=== PATIENT | female | born 1965 | race Caucasian/White ===

== ENCOUNTER 2017-02-20 04:52 | Inpatient (IN) | payer OTHER ==
[~2017-02-20] VITALS: Ht 165.1 cm; Wt 97.5 kg
--- NOTE | ~2017-02-20 | EKG ---
PATIENT: DEBBY LAUREANO UNIT #: [id number] Ventricular Rate: 100 BPM Atrial Rate: 100 BPM P-R Interval: 120 ms QRS Duration: 90 ms Q-T Interval: 352 ms QTC Calculation(Bezet): 454 ms P [place]: 83 degrees Calculated R [place]: 21 degrees Calculated T [place]: 62 degrees Diagnosis Line: Normal sinus rhythm Diagnosis Line: Poor R wave progression questionable lead position Diagnosis Line: or body habitus Diagnosis Line: Abnormal ECG Diagnosis Line: When compared with ECG of 21-FEB-2017 06:44, Diagnosis Line: (unconfirmed) Diagnosis Line: Questionable change in QRS axis Diagnosis Line: Confirmed by TYRONE CARTAGENA MD ([id number]) on 02/23/2017 Diagnosis Line: 3:01:37 PM INTERPRETING MD: MITZI LOPEZ
--- NOTE | ~2017-02-20 | EKG ---
PATIENT: DEBBY LAUREANO UNIT #: [id number] Ventricular Rate: 123 BPM Atrial Rate: 123 BPM P-R Interval: 132 ms QRS Duration: 70 ms Q-T Interval: 342 ms QTC Calculation(Bezet): 489 ms P [place]: 70 degrees Calculated R [place]: 86 degrees Calculated T [place]: 67 degrees Diagnosis Line: Sinus tachycardia Diagnosis Line: Low voltage QRS Diagnosis Line: Nonspecific ST abnormality Diagnosis Line: Abnormal ECG Diagnosis Line: When compared with ECG of 20-FEB-2017 07:17, Diagnosis Line: Premature ventricular complexes are no longer Diagnosis Line: Present Diagnosis Line: Vent. rate has decreased BY 68 BPM Diagnosis Line: Questionable change in QRS duration Diagnosis Line: Confirmed by TYRONE CARTAGENA MD ([id number]) on 02/23/2017 Diagnosis Line: 2:46:27 PM INTERPRETING MD: MITZI LOPEZ
--- NOTE | ~2017-02-20 | CR72 ---
[facility] A Service of [facility] RADIOLOGY TEXT RESULTS PATIENT: DEBBY LAUREANO LOCATION: [place] [address] : [birth year] UNIT #: [id number] AGE: [address]: IGOR SEX: F ORDER DR: [id number] [facility] [address] [place], [place] [address] [id number] I MR#: [id number] #: [id number] NAME: DEBBY LAUREANO : 1965 SEX: F STUDY DATE/TIME: UNIT: [facility] ROOM: [facility] STUDY DESCRIPTION: CR Chest Single View Portable Attending Physician: Igor Ordering Physician: Physician Non-Staff Primary Care Physician: Irene Galvez M.D. MEDICAL IMAGING REPORT This report is preliminary unless electronic signature is present REVISED REPORT SEE ADDENDUM EXAM Portable chest 02/22 at 0001 hours INDICATIONS Shortness of air status post cardiac arrest. Possible organ donor. FINDINGS The ET tube is in the mid trachea. There is a right IJ line, the tip projects over the mid-chest and is probably in the SVC. Patient is rotated on both of the views that have been submitted. There is mild cardiac enlargement and vascular congestion. Allowing for rotation, the lungs appear clear. No pneumothorax. STAT * RESULT Dictated by... Zachary Moreau Jr., M.D. THIS IS AN ELECTRONICALLY VERIFIED REPORT Zachary Moreau Jr., M.D. at 02/23/2017 4:54 AM COLLIN/marybeth TD: 02/22/2017 11:54 JOB #: [id number] [facility] A Service of [facility] & [facility] RADIOLOGY TEXT RESULTS PATIENT: DEBBY LAUREANO LOCATION: [place] [address] : [birth year] UNIT #: [id number] AGE: [address]: IGOR SEX: F ORDER DR: EXAM Portable chest ADDENDUM Measurements have been made at the request of Igor. The right lung height is 25 cm. Left lung height is 22 cm. The distance from the right costophrenic angle to the left costophrenic angle of 34 cm. On the chest CT performed the same day, diameter of the aortic knob on the coronal reformats is 2.8 cm. STAT * RESULT Dictated by... Zachary Moreau Jr., M.D. THIS IS AN ELECTRONICALLY VERIFIED REPORT Zachary Moreau Jr., M.D. at 02/24/2017 3:11 AM COLLIN/eric TD: 02/23/2017 05:10 JOB #: [id number] CC: Yousuf/randa Please Delete MEDICAL IMAGING REPORT Page 1 of 1 COPY
--- NOTE | ~2017-02-20 | CT71 ---
[facility] A Service [facility] & [facility] RADIOLOGY TEXT RESULTS PATIENT: DEBBY LAUREANO LOCATION: [place] [id number] : 64 UNIT #: [id number] AGE: [address]: Melva Khalil MD SEX: F ORDER DR: [id number] [facility] [address] [place], [place] [address] [id number] I MR#: [id number] Acc #: [id number] NAME: DEBBY LAUREANO. : 1965 SEX: F STUDY DATE/TIME: 02/20/2017 9:43 UNIT: [facility] ROOM: [facility] STUDY DESCRIPTION: CT Head Wo Contrast Attending Physician: Melva Khalil M.D. Ordering Physician: Zachary Turk M.D. Primary Care Physician: Irene Galvez M.D. MEDICAL IMAGING REPORT This report is preliminary unless electronic signature is present EXAM Noncontrast CT head. DATE 02/20/2017 at 0943 HISTORY Witnessed cardiac arrest this morning, now unresponsive and on the ventilator. Hypertension. Previous history of stroke. Fibromyalgia. COMPARISON Noncontrast CT head, 08/16/2014. TECHNIQUE This CT exam was performed with one or more of the following radiation dose reduction techniques: automatic exposure control, adjustment of mA and/or kV according to patient size, and iterative reconstruction. FINDINGS The major critical findings have already been discussed with Dr. Turk in the emergency room prior to the time of this dictation, 02/20/2017 at 10:08 a.m. High-density material is seen intracranially, potentially representing diffuse subarachnoid blood. Of note, the patient has no documented history of IV contrast administration either at this facility or documented history of recent IV contrast administration at outside facility. There is diffuse cerebral edema with effacement of the sulci, narrowing of the lateral ventricles, and partial effacement of the third and fourth ventricles as well and effacement of the perimesencephalic cisterns. Additionally, it is worrisome for downward herniation with effacement of [facility] A Service of [facility] & [facility] RADIOLOGY TEXT RESULTS PATIENT: DEBBY LAUREANO LOCATION: [address] : [birth year] UNIT #: [id number] AGE: [address]: Melva Khalil MD SEX: F ORDER DR: the craniocervical junction by the cerebellar tonsils. Paranasal sinus disease is present greatest in the left maxillary and bilateral ethmoid sinuses. Mastoid air cells are clear. No acute calvarial abnormality. IMPRESSION 1. Markedly abnormal examination. Critical findings have already been discussed with the ER physician. 2. There is diffuse cerebral edema with effacement of the perimesencephalic cisterns, partial effacement of the third and fourth ventricles and partial effacement of the lateral ventricles. No midline shift. 3. Features suggestive of diffuse subarachnoid hemorrhage. 4. Findings worrisome for downward herniation with effacement of the craniocervical junction by the cerebellar tonsils. 5. Chronic microvascular disease change in the left parietal lobe thought to be stable since 2014. Dictated by... Cheryl Paul M.D. THIS IS AN ELECTRONICALLY VERIFIED REPORT Cheryl Paul M.D. at 02/21/2017 2:02 PM DARREL/natividad TD: 02/20/2017 12:51 JOB #: [id number] MEDICAL IMAGING REPORT Page 1 of 1 COPY
--- NOTE | ~2017-02-20 | NM10 ---
[facility] A Service of [facility] & [facility] RADIOLOGY TEXT RESULTS PATIENT: DEBBY LAUREANO LOCATION: [place] [address] : [birth year] UNIT #: [id number] AGE: [address]: Mleva Khalil MD SEX: F ORDER DR: [id number] [facility] [address] [place], [place] [address] [id number] I MR#: [id number] Acc #: [id number] NAME: DEBBY LAUREANO : 1965 SEX: F STUDY DATE/TIME: 02/21/2017 15:56 UNIT: [facility] ROOM: [facility] STUDY DESCRIPTION: NM Brain Image W Vasc Flow Attending Physician: Melva Khalil M.D. Ordering Physician: Melva Khalil M.D. Primary Care Physician: Irene Galvez M.D. MEDICAL IMAGING REPORT This report is preliminary unless electronic signature is present EXAM Nuclear medicine imaging with vascular flow. Brain study. DATE OF EXAM 02/21/2017, 15:56. HISTORY [facility] patient. Patient admitted to the hospital 02/20/2017 due to unresponsiveness with cardiac arrest. Shortness of breath at 4 a.m. on 02/20/2017, and EMS was called. EMS found her unresponsive and not breathing, with pulseless electrical activity. While in the ER, pulse was regained, and she was intubated. CT shows severe cerebral edema with brain stem herniation and subarachnoid hemorrhage. COMPARISON CT head without contrast, 02/20/2017. FINDINGS Following the intravenous administration of 23.4 mCi technetium-99m MDP, multiplanar imaging was obtained of the brain. No discernible intracranial activity or intracranial flow was identified. Extracranial activity is demonstrated, including the hot nose sign. IMPRESSION 1. No demonstrable intracranial activity or intracranial flow, compatible with clinical suspicion of brain . STAT * RESULT [facility] A Service of [facility] & [facility] RADIOLOGY TEXT RESULTS PATIENT: DEBBY LAUREANO LOCATION: [address] : [birth year] UNIT #: [id number] AGE: [address]: Melva Khalil MD SEX: F ORDER DR: Dictated by... Cheryl Paul M.D. THIS IS AN ELECTRONICALLY VERIFIED REPORT Cheryl Paul M.D. at 02/21/2017 7:11 PM Mer TD: 02/21/2017 18:56 JOB #: [id number] MEDICAL IMAGING REPORT Page 1 of 1 COPY
--- NOTE | ~2017-02-20 | CO ---
Unit #: [id number] #: [id number] Patient: DEBBY LAUREANO [id number] [facility] [address] [place], [place] [address] [id number] I MR#: [id number] NAME: DEBBY LAUREANO ROOM: [facility] Age: 51 Sex: F Admission Date: 02/20/2017 : 1965 Attending Physician: Igor Primary Care Physician: Irene Galvez M.D. Consultation Date: 02/20/2017 CONSULTATION REPORT REASON FOR CONSULTATION Arrhythmia, status post cardiac arrest. HISTORY OF PRESENT ILLNESS This is a 51-year-old white female with a past medical history of coronary artery disease status post cardiac catheterization on 07/21/2014 at [facility] per Dr. Puga. The patient had 2 areas of 99% stenosis in the first diagonal of the LAD. She underwent a failed angioplasty due to intimal dissection. She was subsequently admitted to [facility], and had a stent placed. Details of stent placement are unavailable at this time. Additional past medical history includes hypertension, diabetes, COPD, and chronic pain syndrome. The patient was seen by our group in the hospital in 08/2014 with hypotension and junctional rhythm with altered mental status. This was thought to be medication induced and her medications were adjusted. She was subsequently discharged. She presented to the hospital early this morning after a cardiac arrest. There is no family at the bedside and the patient is currently on a ventilator and cannot provide any information. Information has been obtained from staff and documentation. According to reports, EMS was dispatched this morning to the patient's home due to shortness of breath. When they arrived on the scene, they were lead into the house. The patient was found to be agonal. She became bradycardic and lost her pulse. CPR was initiated. She was given a round of epi. There were reports of one shock, though code sheets are unavailable for review. In the emergency department, CPR was continued. She was intubated. She was started on Levophed drip, normal saline, and sodium bicarbonate. Her initial potassium was high at 5.4, and she was given insulin. Initial ABG was abnormal with an acidotic pH of 7.12 and CO2 of 70.3. Further labs revealed initially negative cardiac enzymes. Coags were normal. Urine toxicology was negative. Chest x-ray revealed mild vascular congestion, but no effusions or pneumothorax. The patient was taken for a CT of the head due to unresponsiveness. CT of the head was markedly abnormal with diffuse cerebral edema. There were features suggestive of a diffuse subarachnoid hemorrhage. There were findings worrisome for downward herniation. Poststress EKG revealed atrial flutter with a ventricular rate of 91 beats per minute as well as a right bundle-branch block, which is age undetermined. There was deep ST depression noted in the anterolateral leads of V3 through V6. Cardiology was consulted for arrhythmias and post arrest. PAST MEDICAL HISTORY 1. Previous admission to [facility] in 08/2014 for hypertension, junctional rhythm, and altered mental status secondary to overmedication. Unit #: [id number] #: [id number] Patient: DEBBY LAUREANO 2. Coronary artery disease status post cardiac catheterization on 07/21/2014, which revealed left main normal, proximal LAD 30%, LAD involving the first diagonal 60% to 70%, distal to 1st septal clinical services manager 60% to 70%, first diagonal small with 2 areas of 99%, ostial left circumflex 40%, first obtuse marginal, 60%, ostial right coronary artery 30%, junction of proximal 1/3 and distal 2/3 of 50%, mid right coronary artery with 2 areas of 80%, ejection fraction 60%. Failed angioplasty of the first diagonal with intimal dissection. 3. Status post reported PCI and stent at [facility]. Details unavailable. 4. Hypertension. 5. Diabetes mellitus, type 2. 6. Obesity. 7. COPD. 8. Chronic pain syndrome. 9. Peptic ulcer disease. 10. Gastritis. 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 12. Fibromyalgia. 13. Peripheral neuropathy. 14. Partial blindness in the right eye. 15. Renal calculi. 16. Sciatica. 17. Degenerative disk disease. 18. Cataracts. 19. History of tobacco abuse. PAST SURGICAL HISTORY 1. Cardiac catheterization, as noted above. 2. Cataract extraction. 3. Sinus reconstruction. 4. Hysterectomy. 5. Appendectomy. 6. Bronchoscopy. 7. EGD and colonoscopy, last document in 2000. 8. 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 MEDICATIONS Home medications: List of home medications are unavailable at this time. According to office notes in 01/2016, medications included; 1. Albuterol. 2. Amlodipine. 3. Aspirin. 4. Atorvastatin. 5. Budesonide. 6. Carvedilol. 7. Plavix. 8. Gabapentin. 9. Januvia. 10. Levemir. 11. Metformin. 12. Nitrostat. ALLERGIES 1. Penicillin. 2. Codeine. 3. Hydrocodone. 4. Keflex. 5. Ceclor. Unit #: [id number] #: [id number] Patient: DEBBY LAUREANO 6. Erythromycin. 7. Biaxin. SOCIAL HISTORY The patient lives in a private residence. She has a history of tobacco abuse with 1 pack of cigarettes per day. There is no documentation of alcohol or illicit drug use. FAMILY HISTORY Unknown. The patient is adopted. REVIEW OF SYSTEMS Difficult to obtain. PHYSICAL EXAMINATION VITAL SIGNS: Temperature 97.9, pulse 108, and blood pressure 122/87. CONSTITUTIONAL: This is a 51-year-old white female who is nonresponsive on the vent. SKIN: Warm and dry. NECK: Supple. No jugular vein distention. No hepatojugular reflux. Normal carotid upstrokes. No carotid bruits auscultated. HEART: S1 and S2. Regular rate and rhythm. No murmurs, rubs, or gallops. LUNGS: Bilateral breath sounds have good air entry. No wheezes, rhonchi, or rales. Respirations are even and nonlabored. ABDOMEN: Obese, soft, nontender, and nondistended. Positive bowel sounds auscultated x4 quadrants. No ascites noted. EXTREMITIES: Right lower extremity has no pretibial pitting edema. Left above the knee amputation. DIAGNOSTIC STUDIES LABORATORY RESULTS: White blood cell count 20.8, hemoglobin 14, hematocrit 44.7, and platelets 345. Sodium 135, potassium 5.4, chloride 98, CO2 of 17, BUN 6, creatinine 0.9, and glucose 478. AST 46, ALT 24, and alkaline phosphatase 98. Troponin 0.05 and 0.05. Urine toxicology positive for 3+ protein, positive blood, positive yeast. Blood cultures pending. IMAGING STUDIES: 1. Chest x-ray reveals mild vascular congestion. 2. CT of the head without contrast reveals diffuse cerebral edema with effacement of the perimesencephalic cisterns, partial effacement of the 3rd and 4th ventricles, and partial effacement of the lateral ventricles. No midline shift. Features suggestive of diffuse subarachnoid hemorrhage. Findings worrisome for downward herniation with effacement of the craniocervical junction by the cerebellar tonsils. Chronic microvascular disease in the left parietal lobe, thought to be stable since 2014. IMPRESSION 1. Status post resuscitated cardiopulmonary arrest. 2. Subarachnoid hemorrhage. 3. Paroxysmal atrial flutter, now in sinus rhythm. 4. Right bundle-branch block. 5. Coronary artery disease with history of percutaneous coronary intervention and stent at [facility]. Records pending. 6. Previously failed angioplasty of the first diagonal due to intimal dissection in 07/2014. 7. Left ventricular ejection fraction of 60 in 07/2014. Unit #: [id number] #: [id number] Patient: DEBBY LAUREANO 8. Diabetes mellitus, type 2. 9. Hypotension. 10. Chronic obstructive pulmonary disease. 11. Chronic pain syndrome. 12. History of tobacco abuse. PLAN 1. The patient was admitted to the hospital with cardiopulmonary arrest. Return of spontaneous circulation was achieved and she was intubated and transferred to the intensive care unit. 2. Cardiology was consulted post arrest. 3. The patient's EKG revealed atrial flutter, but now shows sinus rhythm. 4. Blood pressure is low and she will be continued on Levophed. 5. A 2D echocardiogram will be completed at the bedside to assess LV function and valves. 6. The patient's cardiac enzymes and EKG will be trended. 7. No antiplatelet or anticoagulation can be ordered due to subarachnoid hemorrhage. 8. Neurology has been consulted. 9. The patient has a very poor prognosis. Dictated by... ONDINA Berkowitz/merlin TD: 02/21/2017 12:15 JOB #: [id number] CONSULTATION REPORT Page 1 of 1 X X CONSULTATION REPORT
--- NOTE | ~2017-02-20 | HP ---
Unit #: [id number] #: [id number] Patient: DEBBY LAUREANO [id number] [place] [id number] [place], [place] [address] [id number] I MR#: [id number] NAME: DEBBY LAUREANO. ROOM: [facility] Age: 51 Sex: F Admission Date: 02/20/2017 : 1965 Attending Physician: Melva Khalil M.D. Primary Care Physician: Irene Galvez M.D. HISTORY AND PHYSICAL CHIEF COMPLAINT Cardiac arrest. HISTORY OF PRESENT ILLNESS A 51-year-old with a past medical history of asthma and diabetes, admitted because of unresponsiveness with a cardiac arrest. I talked to the brother, Rob Laureano, who lives with her, who is the only next of kin available for her. According to him, she was short of breath around 4 o'clock this morning. She called him to call EMS, and he did call EMS. While the ambulance was coming, she called him again and told him not to let her . She was talking through the [employer] phone. So the brother called EMS again a second time, and they arrived 90 seconds after the second call according to the brother. EMS started resuscitation. They found her unresponsive with no breathing and in PEA. Even in the ER, patient was found in cardiac arrest unresponsive and in PEA. Multiple CPR has been done, and later, pulse was regained. She was started on Levophed, intubated, and transferred to the ICU. Later, the ER doctor called me and told that the CAT scan shows severe cerebral edema with brainstem herniation and subarachnoid hemorrhage. According to the brother, she did not have any wheezing, no cough, no fever, no chills, no chest pain, no shortness of breath, and no nausea, vomiting, diarrhea, or constipation. PAST MEDICAL HISTORY 1. Diabetes type 2 with insulin dependence. 2. Cardiac disease, details unknown. 3. Hypertension. 4. Gastroesophageal reflux disease. 5. Peptic ulcer disease. 6. Asthma and chronic bronchitis. 7. Chronic back pain with chronic opiate use. 8. Junctional rhythm. 9. Coronary artery disease, status post stents placed. 10. Gastritis. 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 12. Fibromyalgia. 13. Peripheral neuropathy. 14. Partial blindness in the right eye. 15. Left drayn-jvs-kxbx amputation. 16. Renal calculi. 17. Sciatica. 18. Active smoker. 19. Cataracts with cataract surgery. 20. Sinus reconstruction. Unit #: [id number] #: [id number] Patient: DEBBY LAUREANO 21. Hysterectomy. 22. Appendectomy. 23. Bronchoscopy. 24. EGD and colonoscopy in 2000. ALLERGIES Penicillin, codeine, hydrocodone, Keflex, Ceclor, erythromycin, and Biaxin. CURRENT HOME MEDICATIONS Unavailable. I will get it from pharmacy. SOCIAL HISTORY She lives with her brother. She smokes actively one pack per day. no alcohol and no drugs. FAMILY HISTORY Hypertension. REVIEW OF SYSTEMS Unavailable because patient is unresponsive. According to the brother, Rob Laureano, she did not have any new problems recently. PHYSICAL EXAMINATION VITAL SIGNS ON ADMISSION: Temperature 94.5, pulse 132, respirations 26, and blood pressure 150/86. Later, her blood pressure dropped to 72/55 and Levophed was started. GENERAL: Currently, patient is intubated on Levophed and not sedated. HEENT: Pupils not reacting. No corneal. NECK: Supple. CHEST: Decreased breath sounds. Bilateral rhonchi present. HEART: Regular rhythm. Tachycardia present. ABDOMEN: Soft and nontender. Bowel sounds present. EXTREMITIES: BKA present. NEUROLOGIC: Patient is unresponsive. DIAGNOSTIC STUDIES LABORATORY: Troponins on admission 0.05. WBC 20.8, hemoglobin 14, and platelets 345,000. ABG with pH of 7.12, carbon dioxide 70, and oxygen 469. Sodium 135, potassium 5.4, creatinine 0.9, AST 46, ALT 24, alkaline phosphatase 98, total bilirubin 0.6, and albumin 3.1. Urinalysis shows WBCs 5-10, yeast present, and RBCs 5-10. Urine drug screen negative. ASSESSMENT AND PLAN 1. Cardiopulmonary arrest, status post resuscitation, with multiple CPR. I discussed in detail with the brother, Rob Laureano. He agrees for Do Not Resuscitate. Currently, patient is Do Not Resuscitate. 2. Severe metabolic and respiratory acidosis likely from asthma. Etiology is still unclear. Continue on ventilation. 3. Severe cerebral edema with herniation of cerebellar tonsils and subarachnoid hemorrhage. Monitor in the ICU. Very poor prognosis. Dr. Walter to see. 4. Asthma with exacerbation. Continue with DuoNebs and IV Solu-Medrol. 5. Diabetes mellitus type 2 with metabolic acidosis. Started on insulin protocol. 6. Chronic pain, currently unresponsive. Hold all the opiates. 7. Severe hypotension after cardiac resuscitation, likely cardiogenic shock. Patient is on IV Levophed and fluids given. Monitor closely. 8. Very poor prognosis was discussed with brother, Rob Laureano. Unit #: [id number] #: [id number] Patient: DEBBY LAUREANO understands the situation. Patient is currently Do Not Resuscitate. Neurology to see for cerebral edema and subarachnoid hemorrhage. Critically ill patient. Critical care time taken is 40 minutes. Dictated by Liane Melo/javier TD: 02/20/2017 21:04 JOB #: [id number] HISTORY AND PHYSICAL Page 1 of 1 X Melva Khalil MD HISTORY AND PHYSICAL
--- NOTE | ~2017-02-20 | CT57 ---
[facility] A Service of [facility] & [facility] RADIOLOGY TEXT RESULTS PATIENT: DEBBY LAUREANO LOCATION: [place] [address] : 64 UNIT #: [id number] AGE: [address]: IGOR SEX: F ORDER DR: [id number] [facility] [address] [place], [place] [address] [id number] I MR#: [id number] Acc #: [id number] NAME: DEBBY LAUREANO : 1965 SEX: F STUDY DATE/TIME: 02/22/2017 13:14 UNIT: [facility] ROOM: [facility] STUDY DESCRIPTION: CT Chest Wo Cont Attending Physician: Igor Referring Physician: Noam Valle M.D. Ordering Physician: Noam Valle M.D. Primary Care Physician: Irene Galvez M.D. MEDICAL IMAGING REPORT This report is preliminary unless electronic signature is present REVISED REPORT See addendum EXAM CT chest without contrast HISTORY Asthma. Organ donor workup. Clinical brain . TECHNIQUE This CT exam was performed with one or more of the following radiation dose reduction techniques: automatic exposure control, adjustment of mA and/or kV according to patient size, and iterative reconstruction. FINDINGS CT chest without contrast demonstrates complete left lower lobe atelectasis. Minimal atelectasis in the posterior right lower lobe. 1 cm calcified granuloma in the medial right lower lobe. Minimal fibrotic scarring in the posterior upper lobes. No airspace infiltrates in the remainder of the chest. Very small bilateral pleural effusions. No adenopathy. Calcified mediastinal and right hilar nodes. NG tube extends into the stomach. ETT tip in satisfactory position. No pericardial thickening or effusion. IMPRESSION 1. Complete left lower lobe atelectasis. 2. Minimal atelectasis posterior right lower lobe. 3. Minimal bilateral pleural effusions. 4. No airspace infiltrates in the remainder of the lungs. No adenopathy. STAT * RESULT STS. [facility] A Service of [facility] & [facility] RADIOLOGY TEXT RESULTS PATIENT: DEBBY LAUREANO LOCATION: [address] : [birth year] UNIT #: [id number] AGE: [address]: IGOR SEX: F ORDER DR: Dictated by... Natalio Esposito M.D. THIS IS AN ELECTRONICALLY VERIFIED REPORT Natalio Esposito M.D. at 02/22/2017 7:38 PM DFL/pcl TD: 02/22/2017 15:45 JOB #: [id number] ADDENDUM No evidence of emphysema. STAT * RESULT Dictated by... Natalio Esposito M.D. THIS IS AN ELECTRONICALLY VERIFIED REPORT Natalio Esposito M.D. at 02/23/2017 3:51 PM DFL/jt TD: 02/22/2017 19:50 JOB #: [id number] CC: Yousuf/randa Please Delete MEDICAL IMAGING REPORT Page 1 of 1 COPY
--- NOTE | ~2017-02-20 | CR72 ---
[facility] A Service of [facility] & [facility] RADIOLOGY TEXT RESULTS PATIENT: DEBBY LAUREANO LOCATION: [place] [address] : [birth year] UNIT #: [id number] AGE: [address]: CAROL SEX: F ORDER DR: [id number] [facility] [address] [place], [place] [address] [id number] I MR#: [id number] Acc #: [id number] NAME: DEBBY LAUREANO : 1965 SEX: F STUDY DATE/TIME: 02/23/2017 UNIT: [facility] ROOM: [facility] STUDY DESCRIPTION: CR Chest Single View Portable Ordering Physician: Er Physicians Primary Care Physician: Irene Galvez M.D. MEDICAL IMAGING REPORT This report is preliminary unless electronic signature is present EXAM Portable chest 02/22 22:40 INDICATIONS Shortness of air, congestion and cough for 2 days. Status post cardiac arrest, 02/20/2017. FINDINGS AP portable chest compared with 02/22/2017 at 0001 hours. The exam is degraded by positioning and rotation. ET tube tip is just below the thoracic inlet. The heart size is stable. Cannot exclude left lower lobe atelectasis. Right lung is clear. No pneumothorax. The tip of the right IJ line is in the SVC. NG tube tip below the diaphragm in the stomach. STAT * RESULT Dictated by... Zachary Moreau Jr., M.D. THIS IS AN ELECTRONICALLY VERIFIED REPORT Zachary Moreau Jr., M.D. at 02/24/2017 3:11 AM COLLIN/marybeth TD: 02/23/2017 09:09 JOB #: [id number] MEDICAL IMAGING REPORT Page 1 of 1 COPY
--- NOTE | ~2017-02-20 | CR72 ---
[facility] A Service of [facility] & [facility] RADIOLOGY TEXT RESULTS PATIENT: DEBBY LAUREANO LOCATION: [address]22 : [birth year] UNIT #: [id number] AGE: [address]: Melva Khalil MD SEX: F ORDER DR: [id number] [facility] [address] [place], [place] [address] [id number] I MR#: [id number] Acc #: [id number] NAME: DEBBY LAUREANO : 1965 SEX: F STUDY DATE/TIME: 02/20/2017 5:36 UNIT: [facility] ROOM: [id number] STUDY DESCRIPTION: CR Chest Single View Portable Attending Physician: Melva Khalil M.D. Ordering Physician: Thong Cee M.D. Primary Care Physician: Irene Galvez M.D. MEDICAL IMAGING REPORT This report is preliminary unless electronic signature is present EXAM Portable chest. HISTORY 51-year-old female with shortness of air, tube placement. FINDINGS Portable view of the chest demonstrates an endotracheal tube in place 5.7 cm above sujey. This should be satisfactory positioning. The lungs are clear. Heart and mediastinum unremarkable except for mild pulmonary vascular congestion. No effusions. No pneumothorax. Dictated by... Emily Riggins M.D. THIS IS AN ELECTRONICALLY VERIFIED REPORT Emily Riggins M.D. at 02/21/2017 4:49 PM FELIX/chidi TD: 02/20/2017 09:28 JOB #: [id number] MEDICAL IMAGING REPORT Page 1 of 1 COPY
--- NOTE | ~2017-02-20 | CO ---
Unit #: [id number] #: [id number] Patient: DEBBY LAUREANO [id number] [address] [address] [id number] I MR#: [id number] NAME: DEBBY LAUREANO ROOM: [facility] Age: 51 Sex: F Admission Date: 02/20/2017 : 1965 Attending Physician: Igor Primary Care Physician: Irene Galvez M.D. Consultation Date: 02/20/2017 CONSULTATION REPORT REASON FOR CONSULTATION ICU management. CHIEF COMPLAINT Shortness of breath. HISTORY OF PRESENT ILLNESS This is a 51-year-old female, with past medical history significant for coronary artery disease, COPD, diabetes, hypertension, who presented to the emergency room with a cardiac arrest. Per report, somebody called EMS earlier this morning with severe shortness of breath. When EMS arrived to her house, somebody opened the door, and apparently, later we found out that it was her brother who is a wheelchair bound. When EMS arrived and saw the patient, they noticed that she had a lot of inhalers and breathing treatments around which reflect that the patient was having difficulty breathing for sometimes. Soon after the patient was evaluated, she went into cardiac arrest with PEA and bradycardia. The patient was intubated and transferred to the emergency room. Also per report, the patient had a shockable rhythm at some point. The patient also arrested twice in the emergency room before she finally stabilized. She is currently completely responsive. She is on pressors and she lacks any corneal gag or cough reflexes. PAST MEDICAL HISTORY 1. Coronary artery disease. 2. Hypertension. 3. Diabetes. 4. Peptic ulcer disease. 5. Mendoza esophagus. 6. Fibromyalgia. 7. GERD. 8. Cataract. PAST SURGICAL HISTORY 1. Cardiac cath. 2. Cataract extraction. 3. Hysterectomy. 4. Appendectomy. 5. EGD. 6. Bronchoscopy. ALLERGIES Unit #: [id number] #: [id number] Patient: DEBBY LAUREANO 1. Penicillin. 2. Codeine. 3. Hydrocodone. 4. Keflex. 5. Ceclor. 6. Erythromycin. 7. Biaxin. HOME MEDICATIONS From last admission: 1. Plavix. 2. Levemir. 3. Vistaril. 4. Lipitor. 5. Norvasc. 6. Coreg. 7. Symbicort. 8. Ventolin. 9. Neurontin. 10. Nicotine patch. 11. Aspirin. 12. Ultram. 13. Baclofen. 14. Nitroglycerin. SOCIAL HISTORY The patient lives with her brother, who is a wheelchair bound. She actively smokes from records, but no history of alcohol or drug abuse. FAMILY HISTORY Unobtainable. REVIEW OF SYSTEMS Unable to obtain due to patient's condition. PHYSICAL EXAMINATION GENERAL: The patient is intubated and sedated. She is unresponsive. VITAL SIGNS: Blood pressure is 118/65, respiratory rate 18, O2 saturation 100% on the vent. HEENT: Atraumatic and normocephalic. PERRLA. EOMI. NECK: Supple. No JVD. No lymphadenopathy. CHEST: Fine rhonchi at the bases, but no overt wheezing. HEART: S1 and S2. No murmurs, gallops, or rubs. ABDOMEN: Soft and nontender. Bowel sounds positive. No hepatosplenomegaly. EXTREMITIES: Below the knee amputation on the right side. No edema. SKIN: No rashes. CERAMIC WORKER: The patient is intubated, but she is not on sedation. She is not withdrawing to painful stimuli. There is no gag, cough, or corneal reflexes. DIAGNOSTIC STUDIES LABORATORY RESULTS: Labs and other tests. Creatinine 1.2, sodium 143, chloride 113. White blood count 20.8, hemoglobin 14.0. IMAGING STUDIES: Chest x-ray is noted and reviewed. ASSESSMENT Unit #: [id number] #: [id number] Patient: DEBBY LAUREANO 1. Acute hypoxic respiratory failure. 2. Anoxic brain injury. 3. Status post cardiac arrest. 4. Leukocytosis. 5. Acute kidney injury. 6. Diabetes. 7. Possible diabetic ketoacidosis. 8. Hypertension. 9. Shock. 10. Chronic obstructive pulmonary disease. PLAN 1. We will continue the patient on the vent and she is critical with graving prognosis. 2. We will discuss with her brother, if we can reach him, her code status, as I suggest DNR and compassionate extubation. 3. Antiseizure for possible seizure disorder. 4. We will avoid also any anticoagulation as there is a concern of subarachnoid hemorrhage on the CAT scan. We are waiting for official report from Radiology. 5. Broad-spectrum antibiotics for possible aspiration pneumonia. 6. Bronchodilator and mucolytics. 7. Continue IV fluid and pressor support. I would like to thank, Dr. Yash Banks, for allowing me to be part of this patient's care. Dictated by... Liane Alexander TD: 02/21/2017 15:39 JOB #: [id number] CONSULTATION REPORT Page 1 of 1 X FELIX MONTEMAYOR MD CONSULTATION REPORT
--- NOTE | ~2017-02-20 | A ---
[facility] Nutrition Therapy DATE: 02/21/17 Patient: DEBBY LAUREANO Physician: MARCELA Address: [address] [place] [address] TRACE Room/Bed: [address], Zip: [place] [address] Admit Date: 02/20/17 Date of : [birth year] Height: 5 5 Weight: 214 97.5 NUTRITIONAL ASSESSMENT: REASON: NPO STATUS IN ICU 51 yo female admitted for cardiac arrest PMH: Asthma, DM, gastritis, cardiac disease, HTN, GERD, PUD, PUD, left BKA, Mendoza's Esophagus, peripheral neuropathy, CAD Anthropometrics: Ht: 5'5" Adm wt: 97.5 kg BMI: 35.8 IBW: 56.8 kg Labs: Cl- 114 Gluc 61 Ca++ 8.2 Alb 2.9 AST 70 ALT 44 Mg++ 1.4 Phos 2.3 Accuchecks 217-247 HgbA1C 9.9 Trig 242 GFR 51.9 Meds: Levophed, NaCl, levemir, solu-medrol, novolog, D5%, MgS04, KCl I/O & Bowel function: 3165/2626, last BM 02/20 Skin Integrity: Skin tear chest Intact abrasion right inner calf Scar left stump Edema: None noted Estimated Nutrition Needs: 2569-9814 kcals (14-17 kcals/kg ABW) 85-114 grams protein (1.5-2.0 grams/kg IBW) Diet: NPO Assessment: Chart reviewed, events noted. 51 yo female admitted for cardiac arrest with severe metabolic and respiratory acidosis and cerebral edema. Pt is intubated in the ICU on pressor support. PMH noted above. No plans for nutrition support at this time. Hyperglycemia and hypertriglceridemia noted. Dx: Inadequate protein-energy intake RT ventilator dependence, clinical condition AEB NPO status. Intervention: 1. NPO 2. Enteral nutrition once medically feasible [facility] Nutrition Therapy DATE: 02/21/17 Patient: DEBBY LAUREANO Physician: MARCELA Address: [address] [place] [address] [address]ACE Room/Bed: [address], Zip: [place] [address] Admit Date: 08/10/17 Date of : [birth year] Height: 5 5 Weight: 214 97.5 Monitoring, Evaluation and Goals: 1. Enteral nutrition; initiate if medically feasible 2. Improve labs; glucose, trig, AST, ALT, Mg++, Phos Recommendations: 1. Once the pt is hemodynamically stable, consider initiating enteral nutrition if deemed appropriate per MD discretion. If ordered by MD, start enteral nutrition with Glucerna 1.5 @ 20 mL/hr + 30 mL Prostat BID. Increase by 10 mL q 8 hrs as tolerated to goal of 40 mL/hr + 30 mL Prostat BID. This would provide: 1640 kcals/ 109 grams protein/ 729 mL free H20 *Free H20 flushes per MD orders 2. Replete electrolytes to WNL PRN (Mg++, Phos low). 3. Optimize the pt's insulin regimen noting hyperglycemia. Pt is at severe nutritional risk. RD will follow hospital course per protocol. Respectfully, MARC LEIJA RD, LD [employer] [facility] [employer] cc: client file
--- NOTE | ~2017-02-20 | CO ---
Unit #: [id number] #: [id number] Patient: DEBBY LAUREANO [id number] [facility] [address] [place], [place] [address] [id number] MR#: [id number] NAME: DEBBY LAUREANO ROOM: [facility] Age: 51 Sex: F Admission Date: 02/20/2017 : 1965 Attending Physician: Igor Primary Care Physician: Irene Galvez M.D. Consultation Date: 02/20/2017 CONSULTATION REPORT PRIMARY CARE PHYSICIAN Not listed. REASON FOR CONSULT Subarachnoid hemorrhage and cerebral edema. PATIENT IDENTIFICATION This is a 51-year-old female, evaluated in ICU room 22 at [facility]. SOURCE OF INFORMATION Obtained from the medical record. HISTORY OF PRESENT ILLNESS This is a 51-year-old, unknown handedness female with a past medical history of CAD, cardiomyopathy, COPD, hypertension, diabetes mellitus, among other medical issues discussed below, who presented to [facility] with unresponsiveness via EMS, status post cardiopulmonary arrest. The patient was apparently brought in via EMS with unresponsiveness and given epi x4 and IV glucagon. The patient had multiple episodes of PEA in this facility with eventual ROSC. Per ER documentation, it looks like the patient arrived via EMS in cardiac arrest at 4:50 this morning. CPR in progress. The patient was intubated via EMS. The patient had a pulse of 98. Apparently, at 5:01, the patient went into asystole. CPR was resumed. Epinephrine was given x1. The patient's pulse returned and CPR was stopped. According to documentation in the ER, EMS was called to the patient's home for respiratory distress. When EMS arrived, they were told that the patient was in the back room. They found an empty bottle of beta-blockers at the bedside. The patient was given epi x4 and 2 mg of glucagon prior to arrival, and again the patient went into multiple episodes of PEA and continued to be resuscitated in the ER from approximately 05:15 to 05:53. The patient went for a CAT scan around 9:00 am after being stabilized. The head CT without contrast shows markedly abnormal critical findings. There is diffuse cerebral edema with effacement of the perimesencephalic cisterns, partial effacement of the third and fourth ventricles and partial effacement of the lateral ventricles, but no midline shift. There are features suggestive of diffuse subarachnoid hemorrhage and findings worrisome for downward herniation with effacement of the craniocervical junction by the cerebellar tonsils. Chronic microvascular disease changes noted in the left parietal lobe likely stable since 2014. On examination, the patient is being maintained on Levophed. She is intubated. She is not overbreathing the vent at this time. She has no response to noxious stimuli. No eye signs or brainstem reflexes. Pupils are asymmetric and Unit #: [id number] #: [id number] Patient: DEBBY LAUREANO unresponsive to light and accommodation. The patient's urine tox screen is unremarkable. Again, EMS found an empty bottle of beta-blockers next to the patient's bed when they arrived. PAST MEDICAL HISTORY 1. Severe occlusive coronary artery disease. She had a cardiac catheterization in 2014. 2. Cardiomyopathy with ejection fraction of 44%. 3. COPD. 4. Hypertension. 5. Diabetes mellitus type 2. 6. Peptic ulcer disease. 7. Gastritis. 8. Mendoza esophagus. 9. Chronic pain. 10. Fibromyalgia. 11. Peripheral neuropathy. 12. Partial right eye blindness. 13. Renal calculi. 14. GERD. 15. Sciatica. 16. DJD. 17. Cataracts. 18. Tobacco use. 19. Sinus reconstruction surgery. 20. Hysterectomy. 21. Appendectomy. 22. Bronchoscopy. 23. Left dhlgb-lfl-sgms amputation for diabetic wound. 24. Obstructive sleep apnea. 25. Hypertension. 26. Migraines. 27. CVA. ALLERGIES Penicillin, codeine, hydrocodone, Keflex, Ceclor, erythromycin base, Biaxin. FAMILY HISTORY Unknown. SOCIAL HISTORY Unknown. The patient apparently lives with a family member, who is disabled and unable to come to the hospital. She has a history in the past of no tobacco use. No alcohol use or illicit drug use, but I am uncertain if she is currently smoking tobacco or currently a tobacco smoker. Urine tox screen is negative. HOME MEDICATIONS Have not been reconciled at this time as of yet. REVIEW OF SYSTEMS Unable to obtain from the patient given her mental status. PHYSICAL EXAMINATION VITAL SIGNS: Temperature 97.1, pulse is 99, respirations 28, blood pressure 126/82, blood pressure in the ER was as low as 51/29, oxygen saturation 100% on the ventilator. Height 5 feet 5 inches, weight is 220 Unit #: [id number] #: [id number] Patient: DEBBY LAUREANO, BMI 36. NEUROLOGIC: The patient is intubated, unresponsive. No response to noxious stimuli. No eye signs. The patient is intubated and not sedated. Cranial nerve exam; unable to evaluate abbott of vision. Eyes are conjugate. No ptosis or nystagmus. Negative doll's eyes or oculocephalic reflex. Unable to assess sensation of face and scalp or strength of muscle of facial expression. Unable to assess hearing, tongue, uvula, or palate as the patient is unresponsive. Neck is supple. She has negative oculocephalic reflex. Negative corneals and again pupils are asymmetric. Right is a 3, left is a 4, but they are unresponsive to light. Motor exam, no response. Sensory exam, no response. Gait, unable to be evaluated. Romberg, unable to be evaluated. Reflexes not elicited. Toes are mute. Coordination, not able to be assessed. DIAGNOSTIC STUDIES IMAGING STUDIES: CT of the head without contrast, please see above. LABORATORY RESULTS: Sodium 137, potassium 4, chloride 107, CO2 of 23, glucose 381, BUN 13, creatinine 1.1, estimated GFR 57.7, calcium 7.4. White blood cell count 20.8, hemoglobin 14, hematocrit 44.7, platelet count 345, CPK 353. Hemoglobin A1c 9.9. Troponin 0.17. Urine drug screen unremarkable. Other labs and diagnostic studies are as per chart and have been reviewed. IMPRESSION 1. Anoxic brain injury. 2. Status post arrest, questionable beta-isaias overdose. 3. Acute respiratory failure. 4. Subarachnoid hemorrhage. 5. Chronic obstructive pulmonary disease. PLAN The patient is unresponsive regardless of the cause of above events. The patient's prognosis is extremely poor. CT findings have been reviewed and discussed with Dr. Walter. We will follow along with you. The patient is currently a do not resuscitate per her brother's wishes. We will recommend continuing supportive care, but unfortunately she has an extremely poor prognosis and nothing else can be added from a neurologic standpoint at this time. Please call for any questions or issues. We will follow along with you. We thank you very much for allowing us to assist in the care of this patient. Dictated by... Noreen Malik A.P.R.N. for Liane Matias/merlin TD: 02/21/2017 12:40 JOB #: [id number] Unit #: [id number] #: [id number] Patient: DEBBY LAUREANO CONSULTATION REPORT Page 1 of 1 X Noreen Malik FAMILY PRESERVATION OFFICER X CONSULTATION REPORT
--- NOTE | ~2017-02-20 | EKG ---
PATIENT: DEBBY LAUREANO UNIT #: [id number] Ventricular Rate: 191 BPM Atrial Rate: 101 BPM QRS Duration: 16 ms Q-T Interval: 124 ms QTC Calculation(Bezet): 221 ms Calculated R Carlton: 0 degrees Calculated T Carlton: -110 degrees Diagnosis Line: Sinus tachycardia with frequent Premature Diagnosis Line: ventricular complexes Diagnosis Line: Indeterminate axis Diagnosis Line: Right bundle branch block Diagnosis Line: Pulmonary disease pattern Diagnosis Line: ST and T wave abnormality, consider anterior Diagnosis Line: ischemia Diagnosis Line: Abnormal ECG Diagnosis Line: Diagnosis Line: Confirmed by TYRONE CARTAGENA MD ([id number]) on 02/20/2017 Diagnosis Line: 7:21:33 PM INTERPRETING MD: MITZI LOPEZ
--- NOTE | ~2017-02-20 | CT4 ---
[facility] A Service of [facility] RADIOLOGY TEXT RESULTS PATIENT: DEBBY LAUREANO LOCATION: [address] : [birth year] UNIT #: [id number] AGE: [address]: CAROL SEX: F ORDER DR: [id number] [facility] [address] [place], [place] [address] [id number] I MR#: [id number] Acc #: [id number] NAME: DEBBY LAUREANO : 1965 SEX: F STUDY DATE/TIME: 02/22/2017 13:14 UNIT: [facility] ROOM: [facility] STUDY DESCRIPTION: CT Abd and Pelv Wo Cont Ordering Physician: Noam Valle M.D. Primary Care Physician: Irene Galvez M.D. MEDICAL IMAGING REPORT This report is preliminary unless electronic signature is present EXAM CT abdomen and pelvis INDICATIONS Cardiac arrest. Respiratory failure. Hepatic steatosis. Renal failure. TECHNIQUE CT of the abdomen and pelvis without contrast. Coronal and sagittal reconstructions were obtained. This CT exam was performed with one or more of the following radiation dose reduction techniques: automatic exposure control, adjustment of mA and/or kV according to patient size, and iterative reconstruction. COMPARISON CT abdomen and pelvis 04/21/2014. FINDINGS There is complete atelectasis of the left lower lobe. There is some mild atelectasis in the right lung base. An enteric tube is below the diaphragm with the tip in the gastric body. There is severe hepatic steatosis. The liver is enlarged measuring 20 cm. Gallbladder is not distended. No intrahepatic or extrahepatic biliary dilatation. There is atrophy of the pancreas. The spleen and adrenal glands are grossly normal. An indeterminate exophytic mass off the superior right kidney likely represents a proteinaceous/hemorrhagic cyst. It is not significantly changed from the 2014 exam. There are multiple areas of renal cortical scarring in the right kidney. There is a conglomeration of calculi in the lower pole right kidney measuring 1.7 x 0.9 cm. There are non-obstructing left renal calculi. No hydronephrosis. [facility] A Service of [facility] RADIOLOGY TEXT RESULTS PATIENT: DEBBY LAUREANO LOCATION: [address] : [birth year] UNIT #: [id number] AGE: [address]: CAROL SEX: F ORDER DR: The abdominal aorta is normal in caliber. PELVIS: Bladder is decompressed by a Thao catheter. No enlarged pelvic or inguinal lymph nodes. Small umbilical hernia. There are anterior rib fractures of the right sixth, seventh and eighth ribs. There are left-sided anterior rib fractures involving the anterior fifth, sixth and seventh ribs. IMPRESSION 1. Severe hepatic steatosis and hepatomegaly. 2. Areas of renal cortical scarring in the right kidney. There are bilateral non-obstructing renal calculi. No hydronephrosis. 3. Complete atelectasis of the left lower lobe. Mild atelectasis in the right lower lobe. 4. Anterior fractures of the lower ribs on both left and right side. STAT * RESULT Dictated by... Tolu Jolley M.D. THIS IS AN ELECTRONICALLY VERIFIED REPORT Tolu Jolley M.D. at 02/22/2017 3:52 PM ESTELLA/marybeth TD: 02/22/2017 14:50 JOB #: [id number] MEDICAL IMAGING REPORT Page 1 of 1 COPY
--- NOTE | ~2017-02-20 | DS ---
Unit #: [id number] #: [id number] Patient: DEBBY LAUREANO [id number] [address] [address] [id number] MR#: [id number] NAME: DEBBY LAUREANO. ROOM: [facility] Age: 51 Sex: F Admission Date: 02/20/2017 : 1965 Discharge Date: 02/23/2017 Attending Physician: Igor Primary Care Physician: Irene Galvez M.D. DISCHARGE SUMMARY SUMMARY DISCHARGE DIAGNOSES 1. Patient had brain with brain perfusion scan showing no demonstrable intracranial activity or intracranial flow compatible with clinical suspicion for brain . 2. Severe anoxic brain injury. 3. Status post cardiopulmonary arrest. 4. Severe respiratory acidosis. 5. Acute hypercapnic/hypoxic respiratory failure. 6. Hyperkalemia. 7. Severe cerebral edema. 8. Subarachnoid hemorrhage. 9. Herniation of cerebellar tonsils. 10. Cardiogenic shock. 11. Asthma with exacerbation. 12. Chronic obstructive pulmonary disease. 13. Diabetes mellitus type 2. 14. Hypertension. 15. Chronic pain, on opiates. 16. Hypernatremia. 17. Metabolic acidosis. 18. Mild protein malnutrition. CONSULTATIONS 1. Dr. Steven Banks. 2. Dr. Oliva. 3. Dr. Walter. PROCEDURES Patient had brain perfusion scan which shows clinically suspicious for brain . OTHER LAB DATA pH 7.42, carbon dioxide 34, oxygen 117, sodium 145, potassium 3.8, creatinine 1.2, carbon dioxide 21, AST 70, ALT 44, alkaline phosphatase 76, albumin 2.9. WBC 27.2, hemoglobin 14.8, platelets 276. Blood cultures one out of two Staphylococcus species, coagulase negative, likely skin contamination. HOSPITALIZATION COURSE 51-year-old admitted after cardiac arrest. Patient was admitted in ICU with intubation. Patient was not sedated. Eyes signs are 0/3. Patient Unit #: [id number] #: [id number] Patient: DEBBY LAUREANO did not have any response to noxious stimuli, no eye signs, no corneal, no pupil, fixed doll's eyes. So, concerning for anoxic brain injury so patient seen by neurology. Clinically diagnosed as brain . Later, patient had brain perfusion scan which confirmed brain . Also, patient had subarachnoid hemorrhage with cerebral edema and tonsillar herniation. Because of poor prognosis, we discussed with the family. They agree to withdraw care but patient is under the care of [facility]. Patient transferred care to [facility]. Patient was pronounced on 02/21/2017 at 19:11 p.m. Dictated by... Liane Melo TD: 03/13/2017 07:39 JOB #: [id number] DISCHARGE SUMMARY Page 1 of 1 X Melva Khalil MD X DISCHARGE SUMMARY
[~2017-02-20 04:52] MED LIST: ALBUTEROL17 GM INH; ASPIRIN EC81 M1 PO; BACLOFEN20 M1 PO; COREG PO; COREG6.25 MG PO; GABAPENTIN300 M2 PO; GLUCOTROL PO; HYDROCHLOROTHIA25 MG PO; HYDROXYZINE PAM25 MG PO; LEVAQUIN750 M1 PO; LEVEMIR SUBQ; LIPITOR80 MG PO; NEURONTIN600 MG PO; NICOTINE P1 PATCH .1 TD; NITROGLYGERIN0.4 MG SL; NORVASC10 MG PO; NTG 0.4 MG/0.4 MG/M1 SL; PHENERGAN25 MG PO; PLAVIX PO; SYMBICORT INH; ULTRAM PO; ZESTRIL40 MG PO
[2017-02-20 06:04] LABS: ARTERIAL BLD GAS O2 SATURATION 98.2 % (90.0-100.0); ARTERIAL BLOOD GAS CARBOXY HB 0.6 %sat (0.0-9.0); ARTERIAL BLOOD GAS HCO3 19.3 mmol/L; ARTERIAL BLOOD GAS MET HB 0.6 %sat (0.0-2.0)
[2017-02-20 06:11] LABS: POC - TROPONIN <0.05 ng/mL (<=0.05)
[2017-02-20 06:24] LABS: BASOPHIL# 0.2 X10e3 (0-0.3); BASOPHIL% 1.1 % (0-2.5); EOSINOPHIL# 0.6 X10e3 (0-0.7); EOSINOPHIL% 2.7 % (0.0-7.0); HEMATOCRIT 44.7 % (35.0-45.0); LYMPHOCYTE# 6.4 X10e3 (1.0-3.5); LYMPHOCYTE% 30.8 % (17.0-45.0); MEAN CELL VOLUME 85.3 FL (83-96); MEAN CORPUSCULAR HEMOGLOBIN 26.8 PG (28-34); MEAN CORPUSCULAR HGB CONC 31.4 g/dL (30-36); MEAN PLATELET VOLUME 8.4 FL (6.5-11.5); MONOCYTE# 1.1 X10e3 (0-1.0); MONOCYTE% 5.3 % (3.0-12.0); NEUTROPHIL# 12.5 X10e3 (1.5-7.1); NEUTROPHIL% 60.1 % (40-75); PLATELET COUNT 345 X10e3 (140-420); RED BLOOD COUNT 5.25 X10e (3.90-5.30); RED CELL DISTRIBUTION WIDTH 13.7 % (11.0-15.5); WHITE BLOOD COUNT 20.8 X10e3 (4.0-10.5)
[2017-02-20 06:28] LABS: DIFF IND YES
[2017-02-20 06:32] LABS: INR 1.1; PARTIAL THROMBOPLASTIN TIME 39.7 SECONDS (23.5-31.3); PROTHROMBIN TIME (PATIENT) 11.4 SECONDS (10.0-11.7)
[2017-02-20 06:49] LABS: PLATELET ESTIMATE NORMAL (NORMAL)
[2017-02-20 07:04] LABS: ALBUMIN SERUM 3.1 g/dL (3.5-5.0); BILIRUBIN, DIRECT 0.2 mg/dL (0.0-0.2); BILIRUBIN,INDIRECT 0.4 mg/dL (0.0-0.9); BILIRUBIN,TOTAL 0.6 mg/dL (0.2-2.0); BUN/CREATININE RATIO 6.66; CALCIUM SERUM 8.7 mg/dL (8.4-10.2); CREATININE SERUM 0.9 mg/dL (0.6-1.4); GLOM FILT RATE Estimated 73.6 mL/min (>60); POTASSIUM 5.4 mmol/L (3.5-5.1); PROTEIN TOTAL SERUM 5.7 g/dL (6.0-8.3)
[2017-02-20 07:04] LABS: ARTERIAL BLD GAS O2 SATURATION 98.7 % (90.0-100.0); ARTERIAL BLOOD GAS CARBOXY HB 0.7 %sat (0.0-9.0); ARTERIAL BLOOD GAS MET HB 0.8 %sat (0.0-2.0)
[2017-02-20 07:06] LABS: ARTERIAL BLOOD GAS PCO2 70.3 mmHg (35.0-45.0); ARTERIAL BLOOD GAS pH 7.123 (7.350-7.450)
[2017-02-20 07:07] LABS: ARTERIAL BLOOD GAS ART SITE ARTERIAL LINE; ARTERIAL BLOOD GAS DELIVERY VENT; ARTERIAL BLOOD GAS VENT MODE A/C; ARTERIAL DRAW? YES
[2017-02-20 07:49] LABS: URINE SOURCE CLEAN CATCH
[2017-02-20 07:49] LABS: ARTERIAL BLOOD GAS ALLEN TEST NORMAL; ARTERIAL BLOOD GAS ART SITE LEFT RADIAL; ARTERIAL BLOOD GAS PCO2 96.2 mmHg (35.0-45.0); ARTERIAL BLOOD GAS pH 6.912 (7.350-7.450); ARTERIAL DRAW? YES
[2017-02-20 07:50] LABS: ARTERIAL BLOOD GAS DELIVERY VENT; ARTERIAL BLOOD GAS VENT MODE A/C
[2017-02-20 08:02] LABS: URINE APPEARANCE CLEAR; URINE BILIRUBIN NEG (NEG); URINE BLOOD 3+ (NEG); URINE COLOR YELLOW; URINE GLUCOSE 500 MG/DL (NEG); URINE KETONE NEG (NEG); URINE LEUKOCYTE ESTERASE NEG (NEG); URINE NITRATE NEG (NEG); URINE PROTEIN 3+ (NEG); URINE SPECIFIC GRAVITY 1.008 (1.003-1.035); URINE UROBILINOGEN 0.2 MG/DL (NEG)
[2017-02-20 08:05] LABS: CULTURE INDICATED? YES; URINE BACTERIA AUWI NEG (NEGATIVE)
[2017-02-20 08:28] LABS: URINE SQUAMOUS EPITHELIAL CELL OCCAS /[HPF]
[2017-02-20 08:29] LABS: URINE AMORPHOUS SEDIMENT AMORP PHOSPHATES; URINE YEAST PRESENT
[2017-02-20 08:48] LABS: POC - CKMB 4.3 ng/mL (0.0-7.9); POC - TROPONIN <0.05 ng/mL (<=0.05)
[2017-02-20 11:10] LABS: ARTERIAL BLOOD GAS CARBOXY HB 0.6 %sat (0.0-9.0); ARTERIAL BLOOD GAS HCO3 22.5 mmol/L; ARTERIAL BLOOD GAS MET HB 0.5 %sat (0.0-2.0); ARTERIAL BLOOD GAS pH 7.218 (7.350-7.450)
[2017-02-20 11:13] LABS: ARTERIAL BLOOD GAS PCO2 55.2 mmHg (35.0-45.0)
[2017-02-20 11:14] LABS: ARTERIAL BLOOD GAS PO2 >553.0 mmHg (80.0-100)
[2017-02-20 11:15] LABS: ARTERIAL BLOOD GAS ART SITE ARTERIAL LINE; ARTERIAL BLOOD GAS DELIVERY VENT; ARTERIAL BLOOD GAS VENT MODE AC; ARTERIAL DRAW? YES
[2017-02-20 11:47] LABS: AMPHETAMINE NEG (NEG); BARBITURATES NEG (NEG); BENZODIAZEPINES NEG (NEG); COCAINE NEG (NEG); MARIJUANA NEG (NEG); OPIATES NEG (NEG); TRICYCLIC ANTIDEPRESSANTS NEG (NEG); U METHADONE NEG (NEG)
[2017-02-20 11:59] LABS: CHOLESTEROL 83 mg/dL (0-200); HDL CHOLESTEROL 15 mg/dL (35-95); LDL CHOLESTEROL 20 mg/dL ([, -130]); LDL/HDL RATIO 1 RATIO (0-4); TRIGLYCERIDES 242 mg/dL (10-160)
[2017-02-20 12:09] LABS: BETA HYDROXYBUTYRATE 0.09 MMOL/L (0.02-0.27)
[2017-02-20 14:51] LABS: BUN/CREATININE RATIO 11.81; CALCIUM SERUM 7.4 mg/dL (8.4-10.2); CREATININE SERUM 1.1 mg/dL (0.6-1.4); GLOM FILT RATE Estimated 57.7 mL/min (>60)
[2017-02-20 18:39] LABS: BUN/CREATININE RATIO 10.83; CREATININE SERUM 1.2 mg/dL (0.6-1.4); GLOM FILT RATE Estimated 51.9 mL/min (>60); POTASSIUM 3.3 mmol/L (3.5-5.1)
[2017-02-21 00:55] LABS: BUN/CREATININE RATIO 12.72; CREATININE SERUM 1.1 mg/dL (0.6-1.4); GLOM FILT RATE Estimated 57.7 mL/min (>60); POTASSIUM 3.7 mmol/L (3.5-5.1)
[2017-02-21 04:44] LABS: ARTERIAL BLD GAS O2 SATURATION 98.5 % (90.0-100.0); ARTERIAL BLOOD GAS CARBOXY HB 0.6 %sat (0.0-9.0); ARTERIAL BLOOD GAS MET HB 0.8 %sat (0.0-2.0); ARTERIAL BLOOD GAS PCO2 38.3 mmHg (35.0-45.0); ARTERIAL BLOOD GAS pH 7.368 (7.350-7.450)
[2017-02-21 04:47] LABS: ARTERIAL BLOOD GAS ART SITE ARTERIAL LINE; ARTERIAL BLOOD GAS DELIVERY VENT; ARTERIAL BLOOD GAS VENT MODE AC; ARTERIAL DRAW? YES
[2017-02-21 06:52] LABS: HEMATOCRIT 44.5 % (35.0-45.0); HEMOGLOBIN 14.8 gm/dL (12.0-16.0); LYMPHOCYTE# 1.1 X10e3 (1.0-3.5); LYMPHOCYTE% 3.9 % (17.0-45.0); MEAN CORPUSCULAR HEMOGLOBIN 26.9 PG (28-34); MEAN CORPUSCULAR HGB CONC 33.3 g/dL (30-36); MEAN PLATELET VOLUME 7.8 FL (6.5-11.5); MONOCYTE# 0.8 X10e3 (0-1.0); NEUTROPHIL# 25.4 X10e3 (1.5-7.1); NEUTROPHIL% 93.1 % (40-75); PLATELET COUNT 276 X10e3 (140-420); RED BLOOD COUNT 5.49 X10e (3.90-5.30); RED CELL DISTRIBUTION WIDTH 13.4 % (11.0-15.5); WHITE BLOOD COUNT 27.2 X10e3 (4.0-10.5)
[2017-02-21 07:18] LABS: ALBUMIN SERUM 2.9 g/dL (3.5-5.0); BILIRUBIN,TOTAL 0.4 mg/dL (0.2-2.0); BUN/CREATININE RATIO 14.16; CALCIUM SERUM 8.2 mg/dL (8.4-10.2); CREATININE SERUM 1.2 mg/dL (0.6-1.4); GLOM FILT RATE Estimated 51.9 mL/min (>60); POTASSIUM 3.8 mmol/L (3.5-5.1); PROTEIN TOTAL SERUM 5.6 g/dL (6.0-8.3)
[2017-02-21 07:39] LABS: DIFF IND NO
[2017-02-21 12:35] LABS: BUN/CREATININE RATIO 14.28; CALCIUM SERUM 8.1 mg/dL (8.4-10.2); CREATININE SERUM 1.4 mg/dL (0.6-1.4); GLOM FILT RATE Estimated 43.1 mL/min (>60); POTASSIUM 3.9 mmol/L (3.5-5.1)
[2017-02-21 19:09] LABS: BUN/CREATININE RATIO 17.69; CALCIUM SERUM 7.3 mg/dL (8.4-10.2); CREATININE SERUM 1.3 mg/dL (0.6-1.4); GLOM FILT RATE Estimated 47.1 mL/min (>60); POTASSIUM 3.9 mmol/L (3.5-5.1)
[2017-02-21 23:35] LABS: ARTERIAL BLD GAS O2 SATURATION 98.6 % (90.0-100.0); ARTERIAL BLOOD GAS CARBOXY HB 0.7 %sat (0.0-9.0); ARTERIAL BLOOD GAS HCO3 23.5 mmol/L; ARTERIAL BLOOD GAS MET HB 0.7 %sat (0.0-2.0); ARTERIAL BLOOD GAS PCO2 35.8 mmHg (35.0-45.0); ARTERIAL BLOOD GAS pH 7.426 (7.350-7.450)
[2017-02-21 23:36] LABS: ARTERIAL BLOOD GAS ART SITE ARTERIAL LINE; ARTERIAL BLOOD GAS DELIVERY VENT; ARTERIAL BLOOD GAS VENT MODE A/C; ARTERIAL DRAW? YES
[2017-02-21 23:51] LABS: BASOPHIL% 0.1 % (0-2.5); HEMATOCRIT 41.1 % (35.0-45.0); HEMOGLOBIN 13.5 gm/dL (12.0-16.0); LYMPHOCYTE# 1.5 X10e3 (1.0-3.5); LYMPHOCYTE% 5.8 % (17.0-45.0); MEAN CELL VOLUME 81.4 FL (83-96); MEAN CORPUSCULAR HEMOGLOBIN 26.7 PG (28-34); MEAN CORPUSCULAR HGB CONC 32.8 g/dL (30-36); MEAN PLATELET VOLUME 8.2 FL (6.5-11.5); MONOCYTE# 1.2 X10e3 (0-1.0); MONOCYTE% 4.7 % (3.0-12.0); NEUTROPHIL# 22.7 X10e3 (1.5-7.1); NEUTROPHIL% 89.4 % (40-75); PLATELET COUNT 274 X10e3 (140-420); RED BLOOD COUNT 5.04 X10e (3.90-5.30); RED CELL DISTRIBUTION WIDTH 14.1 % (11.0-15.5); WHITE BLOOD COUNT 25.4 X10e3 (4.0-10.5)
[2017-02-21 23:52] LABS: DIFF IND NO
[2017-02-21 23:58] LABS: INR 1.1; PROTHROMBIN TIME (PATIENT) 11.4 SECONDS (10.0-11.7)
[2017-02-22 00:09] LABS: ALBUMIN SERUM 2.7 g/dL (3.5-5.0); BILIRUBIN, DIRECT 0.1 mg/dL (0.0-0.2); BILIRUBIN,TOTAL 0.9 mg/dL (0.2-2.0); CREATININE SERUM 1.3 mg/dL (0.6-1.4); GLOM FILT RATE Estimated 47.1 mL/min (>60); MAGNESIUM 2.1 mg/dL (1.6-3.0); PHOSPHOROUS 3.1 mg/dL (2.5-4.6); POTASSIUM 3.6 mmol/L (3.5-5.1); PROTEIN TOTAL SERUM 5.5 g/dL (6.0-8.3)
[2017-02-22 00:11] LABS: ARTERIAL BLOOD GAS CARBOXY HB 0.5 %sat (0.0-9.0); ARTERIAL BLOOD GAS HCO3 23.6 mmol/L; ARTERIAL BLOOD GAS MET HB 0.5 %sat (0.0-2.0); ARTERIAL BLOOD GAS PCO2 36.9 mmHg (35.0-45.0); ARTERIAL BLOOD GAS pH 7.414 (7.350-7.450)
[2017-02-22 00:14] LABS: ARTERIAL BLOOD GAS ART SITE ARTERIAL LINE; ARTERIAL BLOOD GAS DELIVERY VENT; ARTERIAL BLOOD GAS VENT MODE A/C; ARTERIAL DRAW? YES
[2017-02-22 01:06] LABS: ARTERIAL BLD GAS O2 SATURATION 98.3 % (90.0-100.0); ARTERIAL BLOOD GAS CARBOXY HB 0.7 %sat (0.0-9.0); ARTERIAL BLOOD GAS HCO3 24.3 mmol/L; ARTERIAL BLOOD GAS MET HB 0.5 %sat (0.0-2.0); ARTERIAL BLOOD GAS PCO2 38.4 mmHg (35.0-45.0); ARTERIAL BLOOD GAS pH 7.409 (7.350-7.450)
[2017-02-22 01:07] LABS: ARTERIAL BLOOD GAS ART SITE ARTERIAL LINE; ARTERIAL BLOOD GAS DELIVERY VENT; ARTERIAL BLOOD GAS VENT MODE A/C; ARTERIAL DRAW? YES
[2017-02-22 03:22] LABS: BASOPHIL% 0.2 % (0-2.5); DIFF IND NO; HEMATOCRIT 37.6 % (35.0-45.0); HEMOGLOBIN 12.6 gm/dL (12.0-16.0); LYMPHOCYTE# 0.7 X10e3 (1.0-3.5); LYMPHOCYTE% 3.7 % (17.0-45.0); MEAN CELL VOLUME 80.9 FL (83-96); MEAN CORPUSCULAR HGB CONC 33.4 g/dL (30-36); MEAN PLATELET VOLUME 7.8 FL (6.5-11.5); MONOCYTE% 5.2 % (3.0-12.0); NEUTROPHIL# 18.4 X10e3 (1.5-7.1); NEUTROPHIL% 90.9 % (40-75); PLATELET COUNT 232 X10e3 (140-420); RED BLOOD COUNT 4.65 X10e (3.90-5.30); WHITE BLOOD COUNT 20.2 X10e3 (4.0-10.5)
[2017-02-22 03:32] LABS: INR 1.1; PARTIAL THROMBOPLASTIN TIME 26.3 SECONDS (23.5-31.3)
[2017-02-22 03:42] LABS: ALBUMIN SERUM 2.5 g/dL (3.5-5.0); BILIRUBIN, DIRECT 0.2 mg/dL (0.0-0.2); BILIRUBIN,TOTAL 0.6 mg/dL (0.2-2.0); CALCIUM SERUM 7.5 mg/dL (8.4-10.2); CREATININE SERUM 1.3 mg/dL (0.6-1.4); GLOM FILT RATE Estimated 47.1 mL/min (>60); MAGNESIUM 1.8 mg/dL (1.6-3.0); PHOSPHOROUS 2.9 mg/dL (2.5-4.6); POTASSIUM 3.9 mmol/L (3.5-5.1); PROTEIN TOTAL SERUM 4.9 g/dL (6.0-8.3)
[2017-02-22 04:40] LABS: %MB 5.8 % (0.0-4.0); MB 4.4 ng/ml
[2017-02-22 05:08] LABS: ARTERIAL BLD GAS O2 SATURATION 96.5 % (90.0-100.0); ARTERIAL BLOOD GAS CARBOXY HB 0.8 %sat (0.0-9.0); ARTERIAL BLOOD GAS HCO3 23.5 mmol/L; ARTERIAL BLOOD GAS MET HB 0.8 %sat (0.0-2.0); ARTERIAL BLOOD GAS PCO2 41.4 mmHg (35.0-45.0); ARTERIAL BLOOD GAS pH 7.362 (7.350-7.450)
[2017-02-22 05:09] LABS: ARTERIAL BLOOD GAS ART SITE ARTERIAL LINE; ARTERIAL BLOOD GAS DELIVERY VENT; ARTERIAL BLOOD GAS VENT MODE A/C; ARTERIAL DRAW? YES
[2017-02-22 06:29] LABS: ARTERIAL BLOOD GAS CARBOXY HB 0.6 %sat (0.0-9.0); ARTERIAL BLOOD GAS HCO3 22.8 mmol/L; ARTERIAL BLOOD GAS MET HB 0.8 %sat (0.0-2.0); ARTERIAL BLOOD GAS PCO2 40.6 mmHg (35.0-45.0); ARTERIAL BLOOD GAS pH 7.357 (7.350-7.450)
[2017-02-22 06:30] LABS: ARTERIAL BLOOD GAS ART SITE ARTERIAL LINE; ARTERIAL DRAW? YES
[2017-02-22 06:31] LABS: ARTERIAL BLOOD GAS DELIVERY VENT; ARTERIAL BLOOD GAS VENT MODE A/C
[2017-02-22 07:14] LABS: BASOPHIL# 0.1 X10e3 (0-0.3); BASOPHIL% 0.3 % (0-2.5); HEMOGLOBIN 12.7 gm/dL (12.0-16.0); LYMPHOCYTE# 0.6 X10e3 (1.0-3.5); LYMPHOCYTE% 2.5 % (17.0-45.0); MEAN CELL VOLUME 81.5 FL (83-96); MEAN CORPUSCULAR HEMOGLOBIN 27.2 PG (28-34); MEAN CORPUSCULAR HGB CONC 33.3 g/dL (30-36); MEAN PLATELET VOLUME 7.5 FL (6.5-11.5); MONOCYTE# 0.4 X10e3 (0-1.0); MONOCYTE% 1.7 % (3.0-12.0); NEUTROPHIL# 20.7 X10e3 (1.5-7.1); NEUTROPHIL% 95.5 % (40-75); PLATELET COUNT 238 X10e3 (140-420); RED BLOOD COUNT 4.66 X10e (3.90-5.30); RED CELL DISTRIBUTION WIDTH 13.6 % (11.0-15.5); WHITE BLOOD COUNT 21.7 X10e3 (4.0-10.5)
[2017-02-22 07:19] LABS: DIFF IND NO
[2017-02-22 08:14] LABS: ALBUMIN SERUM 2.7 g/dL (3.5-5.0); BILIRUBIN, DIRECT 0.2 mg/dL (0.0-0.2); BILIRUBIN,TOTAL 0.7 mg/dL (0.2-2.0); BUN/CREATININE RATIO 20.83; CREATININE SERUM 1.2 mg/dL (0.6-1.4); GLOM FILT RATE Estimated 51.9 mL/min (>60); MAGNESIUM 1.9 mg/dL (1.6-3.0); PHOSPHOROUS 2.6 mg/dL (2.5-4.6); POTASSIUM 4.1 mmol/L (3.5-5.1); PROTEIN TOTAL SERUM 5.4 g/dL (6.0-8.3)
[2017-02-22 08:35] LABS: INR 1.1; PARTIAL THROMBOPLASTIN TIME 25.9 SECONDS (23.5-31.3); PROTHROMBIN TIME (PATIENT) 11.6 SECONDS (10.0-11.7)
[2017-02-22 09:13] LABS: ARTERIAL BLD GAS O2 SATURATION 96.9 % (90.0-100.0); ARTERIAL BLOOD GAS CARBOXY HB 0.8 %sat (0.0-9.0); ARTERIAL BLOOD GAS HCO3 23.1 mmol/L; ARTERIAL BLOOD GAS MET HB 0.8 %sat (0.0-2.0); ARTERIAL BLOOD GAS PCO2 40.1 mmHg (35.0-45.0); ARTERIAL BLOOD GAS pH 7.369 (7.350-7.450)
[2017-02-22 09:14] LABS: ARTERIAL BLOOD GAS ART SITE ARTERIAL LINE; ARTERIAL BLOOD GAS DELIVERY VENT; ARTERIAL BLOOD GAS VENT MODE A/C; ARTERIAL DRAW? YES
[2017-02-22 09:47] LABS: ARTERIAL BLD GAS O2 SATURATION 99.1 % (90.0-100.0); ARTERIAL BLOOD GAS CARBOXY HB 0.7 %sat (0.0-9.0); ARTERIAL BLOOD GAS HCO3 23.3 mmol/L; ARTERIAL BLOOD GAS MET HB 0.8 %sat (0.0-2.0); ARTERIAL BLOOD GAS PCO2 39.6 mmHg (35.0-45.0); ARTERIAL BLOOD GAS pH 7.378 (7.350-7.450)
[2017-02-22 09:49] LABS: ARTERIAL BLOOD GAS ART SITE ARTERIAL LINE; ARTERIAL BLOOD GAS DELIVERY VENT; ARTERIAL BLOOD GAS VENT MODE A/C; ARTERIAL DRAW? YES
[2017-02-22 10:21] LABS: %MB 4.2 % (0.0-4.0); MB 3.1 ng/ml
[2017-02-22 11:06] LABS: BASOPHIL% 0.1 % (0-2.5); HEMATOCRIT 38.4 % (35.0-45.0); HEMOGLOBIN 12.5 gm/dL (12.0-16.0); LYMPHOCYTE# 0.7 X10e3 (1.0-3.5); MEAN CORPUSCULAR HEMOGLOBIN 26.7 PG (28-34); MEAN CORPUSCULAR HGB CONC 32.5 g/dL (30-36); MEAN PLATELET VOLUME 7.8 FL (6.5-11.5); MONOCYTE# 0.6 X10e3 (0-1.0); MONOCYTE% 2.5 % (3.0-12.0); NEUTROPHIL# 21.4 X10e3 (1.5-7.1); NEUTROPHIL% 94.4 % (40-75); PLATELET COUNT 245 X10e3 (140-420); RED BLOOD COUNT 4.68 X10e (3.90-5.30); RED CELL DISTRIBUTION WIDTH 13.8 % (11.0-15.5); WHITE BLOOD COUNT 22.7 X10e3 (4.0-10.5)
[2017-02-22 11:07] LABS: DIFF IND YES
[2017-02-22 11:15] LABS: INR 1.1; PARTIAL THROMBOPLASTIN TIME 22.9 SECONDS (23.5-31.3); PROTHROMBIN TIME (PATIENT) 11.4 SECONDS (10.0-11.7)
[2017-02-22 11:36] LABS: PLATELET ESTIMATE NORMAL (NORMAL)
[2017-02-22 12:13] LABS: ALBUMIN SERUM 2.7 g/dL (3.5-5.0); BILIRUBIN, DIRECT 0.2 mg/dL (0.0-0.2); BILIRUBIN,TOTAL 0.8 mg/dL (0.2-2.0); BUN/CREATININE RATIO 21.81; CALCIUM SERUM 8.3 mg/dL (8.4-10.2); CREATININE SERUM 1.1 mg/dL (0.6-1.4); GLOM FILT RATE Estimated 57.7 mL/min (>60); MAGNESIUM 1.9 mg/dL (1.6-3.0); PHOSPHOROUS 2.9 mg/dL (2.5-4.6); POTASSIUM 4.3 mmol/L (3.5-5.1); PROTEIN TOTAL SERUM 5.3 g/dL (6.0-8.3)
[2017-02-22 14:43] LABS: ARTERIAL BLOOD GAS CARBOXY HB 0.8 %sat (0.0-9.0); ARTERIAL BLOOD GAS HCO3 22.8 mmol/L; ARTERIAL BLOOD GAS MET HB 0.8 %sat (0.0-2.0); ARTERIAL BLOOD GAS PCO2 36.8 mmHg (35.0-45.0); ARTERIAL BLOOD GAS PO2 98.6 mmHg (80.0-100)
[2017-02-22 14:44] LABS: ARTERIAL DRAW? YES
[2017-02-22 14:45] LABS: ARTERIAL BLOOD GAS ART SITE ARTERIAL LINE; ARTERIAL BLOOD GAS DELIVERY VENT; ARTERIAL BLOOD GAS VENT MODE A/C
[2017-02-22 15:14] LABS: BASOPHIL% 0.2 % (0-2.5); HEMATOCRIT 37.9 % (35.0-45.0); HEMOGLOBIN 12.7 gm/dL (12.0-16.0); LYMPHOCYTE# 0.8 X10e3 (1.0-3.5); LYMPHOCYTE% 3.6 % (17.0-45.0); MEAN CELL VOLUME 81.3 FL (83-96); MEAN CORPUSCULAR HEMOGLOBIN 27.3 PG (28-34); MEAN CORPUSCULAR HGB CONC 33.6 g/dL (30-36); MEAN PLATELET VOLUME 7.8 FL (6.5-11.5); MONOCYTE# 0.6 X10e3 (0-1.0); MONOCYTE% 2.7 % (3.0-12.0); NEUTROPHIL# 19.8 X10e3 (1.5-7.1); NEUTROPHIL% 93.5 % (40-75); PLATELET COUNT 237 X10e3 (140-420); RED BLOOD COUNT 4.66 X10e (3.90-5.30); RED CELL DISTRIBUTION WIDTH 13.8 % (11.0-15.5); WHITE BLOOD COUNT 21.2 X10e3 (4.0-10.5)
[2017-02-22 15:15] LABS: DIFF IND NO
[2017-02-22 15:24] LABS: INR 1.1; PARTIAL THROMBOPLASTIN TIME 26.1 SECONDS (23.5-31.3); PROTHROMBIN TIME (PATIENT) 11.4 SECONDS (10.0-11.7)
[2017-02-22 15:50] LABS: ARTERIAL BLOOD GAS CARBOXY HB 0.6 %sat (0.0-9.0); ARTERIAL BLOOD GAS HCO3 22.7 mmol/L; ARTERIAL BLOOD GAS MET HB 0.6 %sat (0.0-2.0); ARTERIAL BLOOD GAS pH 7.397 (7.350-7.450)
[2017-02-22 15:52] LABS: ARTERIAL BLOOD GAS ART SITE ARTERIAL LINE; ARTERIAL BLOOD GAS DELIVERY VENT; ARTERIAL BLOOD GAS VENT MODE A/C; ARTERIAL DRAW? YES
[2017-02-22 15:54] LABS: ALBUMIN SERUM 2.7 g/dL (3.5-5.0); BILIRUBIN, DIRECT 0.2 mg/dL (0.0-0.2); BILIRUBIN,TOTAL 0.9 mg/dL (0.2-2.0); BUN/CREATININE RATIO 21.81; CALCIUM SERUM 8.9 mg/dL (8.4-10.2); CREATININE SERUM 1.1 mg/dL (0.6-1.4); GLOM FILT RATE Estimated 57.7 mL/min (>60); MAGNESIUM 2.1 mg/dL (1.6-3.0); PHOSPHOROUS 2.8 mg/dL (2.5-4.6); POTASSIUM 4.4 mmol/L (3.5-5.1); PROTEIN TOTAL SERUM 5.5 g/dL (6.0-8.3)
[2017-02-22 19:28] LABS: BASOPHIL# 0.1 X10e3 (0-0.3); BASOPHIL% 0.4 % (0-2.5); EOSINOPHIL% 0.1 % (0.0-7.0); HEMATOCRIT 37.8 % (35.0-45.0); HEMOGLOBIN 12.5 gm/dL (12.0-16.0); LYMPHOCYTE# 0.7 X10e3 (1.0-3.5); LYMPHOCYTE% 3.2 % (17.0-45.0); MEAN CELL VOLUME 81.2 FL (83-96); MEAN CORPUSCULAR HEMOGLOBIN 26.8 PG (28-34); MEAN PLATELET VOLUME 7.8 FL (6.5-11.5); MONOCYTE# 0.7 X10e3 (0-1.0); MONOCYTE% 3.6 % (3.0-12.0); NEUTROPHIL# 19.5 X10e3 (1.5-7.1); NEUTROPHIL% 92.7 % (40-75); PLATELET COUNT 235 X10e3 (140-420); RED BLOOD COUNT 4.65 X10e (3.90-5.30); RED CELL DISTRIBUTION WIDTH 13.7 % (11.0-15.5)
[2017-02-22 19:29] LABS: ARTERIAL BLOOD GAS CARBOXY HB 0.7 %sat (0.0-9.0); ARTERIAL BLOOD GAS HCO3 22.4 mmol/L; ARTERIAL BLOOD GAS MET HB 0.8 %sat (0.0-2.0); ARTERIAL BLOOD GAS PCO2 34.6 mmHg (35.0-45.0)
[2017-02-22 19:30] LABS: ARTERIAL BLOOD GAS ART SITE ARTERIAL LINE; ARTERIAL BLOOD GAS DELIVERY VENT; ARTERIAL BLOOD GAS VENT MODE A/C; ARTERIAL DRAW? YES
[2017-02-22 19:30] LABS: DIFF IND NO
[2017-02-22 19:36] LABS: PARTIAL THROMBOPLASTIN TIME 26.6 SECONDS (23.5-31.3); PROTHROMBIN TIME (PATIENT) 11.2 SECONDS (10.0-11.7)
[2017-02-22 19:45] LABS: ALBUMIN SERUM 2.7 g/dL (3.5-5.0); BILIRUBIN, DIRECT 0.1 mg/dL (0.0-0.2); BILIRUBIN,TOTAL 0.6 mg/dL (0.2-2.0); BUN/CREATININE RATIO 21.81; CALCIUM SERUM 8.9 mg/dL (8.4-10.2); CREATININE SERUM 1.1 mg/dL (0.6-1.4); GLOM FILT RATE Estimated 57.7 mL/min (>60); PHOSPHOROUS 2.7 mg/dL (2.5-4.6); POTASSIUM 4.4 mmol/L (3.5-5.1); PROTEIN TOTAL SERUM 5.6 g/dL (6.0-8.3)
[2017-02-22 21:12] LABS: ARTERIAL BLOOD GAS CARBOXY HB 0.7 %sat (0.0-9.0); ARTERIAL BLOOD GAS HCO3 22.7 mmol/L; ARTERIAL BLOOD GAS MET HB 0.7 %sat (0.0-2.0); ARTERIAL BLOOD GAS PCO2 37.3 mmHg (35.0-45.0); ARTERIAL BLOOD GAS pH 7.392 (7.350-7.450)
[2017-02-22 21:13] LABS: ARTERIAL BLOOD GAS ART SITE ARTERIAL LINE; ARTERIAL BLOOD GAS DELIVERY VENT; ARTERIAL BLOOD GAS VENT MODE A/C; ARTERIAL DRAW? YES
[2017-02-22 22:25] LABS: URINE APPEARANCE CLEAR; URINE BILIRUBIN NEG (NEG); URINE BLOOD TRACE (NEG); URINE COLOR YELLOW; URINE GLUCOSE NEG (NEG); URINE KETONE NEG (NEG); URINE LEUKOCYTE ESTERASE NEG (NEG); URINE NITRATE NEG (NEG); URINE PROTEIN NEG (NEG); URINE SPECIFIC GRAVITY 1.014 (1.003-1.035); URINE UROBILINOGEN 0.2 MG/DL (NEG)
[2017-02-22 22:27] LABS: URINE BACTERIA AUWI NEG (NEGATIVE); URINE SQUAMOUS EPITHELIAL CELL NONE SEEN /[HPF]
[2017-02-22 23:08] LABS: BASOPHIL# 0.6 X10e3 (0-0.3); BASOPHIL% 3.3 % (0-2.5); HEMATOCRIT 35.9 % (35.0-45.0); HEMOGLOBIN 11.8 gm/dL (12.0-16.0); LYMPHOCYTE# 0.6 X10e3 (1.0-3.5); LYMPHOCYTE% 3.5 % (17.0-45.0); MEAN CELL VOLUME 81.6 FL (83-96); MEAN CORPUSCULAR HEMOGLOBIN 26.7 PG (28-34); MEAN CORPUSCULAR HGB CONC 32.7 g/dL (30-36); MEAN PLATELET VOLUME 7.9 FL (6.5-11.5); MONOCYTE# 0.6 X10e3 (0-1.0); MONOCYTE% 3.6 % (3.0-12.0); NEUTROPHIL# 15.4 X10e3 (1.5-7.1); NEUTROPHIL% 89.6 % (40-75); PLATELET COUNT 223 X10e3 (140-420); RED CELL DISTRIBUTION WIDTH 13.7 % (11.0-15.5); WHITE BLOOD COUNT 17.2 X10e3 (4.0-10.5)
[2017-02-22 23:09] LABS: DIFF IND NO
[2017-02-22 23:19] LABS: INR 1.1; PROTHROMBIN TIME (PATIENT) 11.4 SECONDS (10.0-11.7)
[2017-02-22 23:28] LABS: ALBUMIN SERUM 2.6 g/dL (3.5-5.0); BILIRUBIN, DIRECT 0.2 mg/dL (0.0-0.2); BILIRUBIN,TOTAL 0.9 mg/dL (0.2-2.0); BUN/CREATININE RATIO 23.63; CALCIUM SERUM 8.8 mg/dL (8.4-10.2); CREATININE SERUM 1.1 mg/dL (0.6-1.4); GLOM FILT RATE Estimated 57.7 mL/min (>60); POTASSIUM 4.3 mmol/L (3.5-5.1); PROTEIN TOTAL SERUM 5.4 g/dL (6.0-8.3)
[2017-02-23 01:08] LABS: ARTERIAL BLD GAS O2 SATURATION 97.1 % (90.0-100.0); ARTERIAL BLOOD GAS CARBOXY HB 0.9 %sat (0.0-9.0); ARTERIAL BLOOD GAS HCO3 22.4 mmol/L; ARTERIAL BLOOD GAS MET HB 0.8 %sat (0.0-2.0); ARTERIAL BLOOD GAS PCO2 34.3 mmHg (35.0-45.0); ARTERIAL BLOOD GAS PO2 99.9 mmHg (80.0-100); ARTERIAL BLOOD GAS pH 7.423 (7.350-7.450)
[2017-02-23 01:09] LABS: ARTERIAL BLOOD GAS ART SITE ARTERIAL LINE; ARTERIAL BLOOD GAS DELIVERY VENT; ARTERIAL BLOOD GAS VENT MODE A/C; ARTERIAL DRAW? YES
[2017-02-23 01:49] LABS: ARTERIAL BLOOD GAS CARBOXY HB 0.6 %sat (0.0-9.0); ARTERIAL BLOOD GAS HCO3 22.7 mmol/L; ARTERIAL BLOOD GAS MET HB 0.8 %sat (0.0-2.0); ARTERIAL BLOOD GAS PCO2 34.3 mmHg (35.0-45.0); ARTERIAL BLOOD GAS pH 7.428 (7.350-7.450)
[2017-02-23 01:50] LABS: ARTERIAL BLOOD GAS ART SITE ARTERIAL LINE; ARTERIAL DRAW? YES
[2017-02-23 01:51] LABS: ARTERIAL BLOOD GAS DELIVERY VENT; ARTERIAL BLOOD GAS VENT MODE A/C
[2017-02-23 03:11] LABS: BASOPHIL% 0.3 % (0-2.5); HEMOGLOBIN 11.4 gm/dL (12.0-16.0); LYMPHOCYTE# 0.6 X10e3 (1.0-3.5); LYMPHOCYTE% 3.5 % (17.0-45.0); MEAN CELL VOLUME 81.9 FL (83-96); MEAN CORPUSCULAR HEMOGLOBIN 26.5 PG (28-34); MEAN CORPUSCULAR HGB CONC 32.4 g/dL (30-36); MEAN PLATELET VOLUME 7.9 FL (6.5-11.5); MONOCYTE# 0.9 X10e3 (0-1.0); MONOCYTE% 5.2 % (3.0-12.0); NEUTROPHIL# 15.7 X10e3 (1.5-7.1); PLATELET COUNT 223 X10e3 (140-420); RED BLOOD COUNT 4.28 X10e (3.90-5.30); RED CELL DISTRIBUTION WIDTH 13.5 % (11.0-15.5); WHITE BLOOD COUNT 17.2 X10e3 (4.0-10.5)
[2017-02-23 03:12] LABS: DIFF IND NO
[2017-02-23 03:21] LABS: PARTIAL THROMBOPLASTIN TIME 26.4 SECONDS (23.5-31.3); PROTHROMBIN TIME (PATIENT) 11.3 SECONDS (10.0-11.7)
[2017-02-23 03:30] LABS: ALBUMIN SERUM 2.5 g/dL (3.5-5.0); BILIRUBIN,TOTAL 0.5 mg/dL (0.2-2.0); CALCIUM SERUM 8.7 mg/dL (8.4-10.2); GLOM FILT RATE Estimated 64.8 mL/min (>60); MAGNESIUM 2.1 mg/dL (1.6-3.0); PHOSPHOROUS 3.1 mg/dL (2.5-4.6); POTASSIUM 4.3 mmol/L (3.5-5.1); PROTEIN TOTAL SERUM 5.2 g/dL (6.0-8.3)
[2017-02-23 04:10] LABS: BILIRUBIN, DIRECT 0.1 mg/dL (0.0-0.2)
[2017-02-23 07:22] LABS: BASOPHIL% 0.1 % (0-2.5); HEMATOCRIT 33.4 % (35.0-45.0); HEMOGLOBIN 11.2 gm/dL (12.0-16.0); LYMPHOCYTE# 0.5 X10e3 (1.0-3.5); LYMPHOCYTE% 3.4 % (17.0-45.0); MEAN CORPUSCULAR HEMOGLOBIN 27.2 PG (28-34); MEAN CORPUSCULAR HGB CONC 33.6 g/dL (30-36); MEAN PLATELET VOLUME 7.8 FL (6.5-11.5); MONOCYTE# 0.8 X10e3 (0-1.0); MONOCYTE% 4.7 % (3.0-12.0); NEUTROPHIL# 14.9 X10e3 (1.5-7.1); NEUTROPHIL% 91.8 % (40-75); PLATELET COUNT 217 X10e3 (140-420); RED BLOOD COUNT 4.13 X10e (3.90-5.30); RED CELL DISTRIBUTION WIDTH 13.7 % (11.0-15.5); WHITE BLOOD COUNT 16.2 X10e3 (4.0-10.5)
[2017-02-23 07:29] LABS: DIFF IND NO
[2017-02-23 07:31] LABS: PARTIAL THROMBOPLASTIN TIME 26.5 SECONDS (23.5-31.3); PROTHROMBIN TIME (PATIENT) 11.3 SECONDS (10.0-11.7)
[2017-02-23 07:44] LABS: BILIRUBIN, DIRECT 0.1 mg/dL (0.0-0.2)
[2017-02-23 07:51] LABS: ALBUMIN SERUM 2.4 g/dL (3.5-5.0); BILIRUBIN,TOTAL 0.7 mg/dL (0.2-2.0); BUN/CREATININE RATIO 22.72; CALCIUM SERUM 8.8 mg/dL (8.4-10.2); CREATININE SERUM 1.1 mg/dL (0.6-1.4); GLOM FILT RATE Estimated 57.7 mL/min (>60); MAGNESIUM 2.1 mg/dL (1.6-3.0); PHOSPHOROUS 3.1 mg/dL (2.5-4.6); POTASSIUM 4.2 mmol/L (3.5-5.1); PROTEIN TOTAL SERUM 5.2 g/dL (6.0-8.3)
[2017-02-23 10:04] LABS: URINE SOURCE CATH
[2017-02-23 10:13] LABS: URINE APPEARANCE CLEAR; URINE BILIRUBIN NEG (NEG); URINE BLOOD NEG (NEG); URINE COLOR YELLOW; URINE GLUCOSE NEG (NEG); URINE KETONE NEG (NEG); URINE LEUKOCYTE ESTERASE NEG (NEG); URINE NITRATE NEG (NEG); URINE PH 5.5 (5-8); URINE PROTEIN NEG (NEG); URINE SPECIFIC GRAVITY 1.011 (1.003-1.035); URINE UROBILINOGEN 0.2 MG/DL (NEG)
[2017-02-23 10:18] LABS: CULTURE INDICATED? NO
[2017-02-23 11:26] LABS: BASOPHIL% 0.2 % (0-2.5); HEMATOCRIT 34.3 % (35.0-45.0); HEMOGLOBIN 11.2 gm/dL (12.0-16.0); LYMPHOCYTE# 0.5 X10e3 (1.0-3.5); LYMPHOCYTE% 3.3 % (17.0-45.0); MEAN CELL VOLUME 82.4 FL (83-96); MEAN CORPUSCULAR HEMOGLOBIN 26.8 PG (28-34); MEAN CORPUSCULAR HGB CONC 32.5 g/dL (30-36); MEAN PLATELET VOLUME 7.9 FL (6.5-11.5); MONOCYTE# 0.6 X10e3 (0-1.0); MONOCYTE% 3.8 % (3.0-12.0); NEUTROPHIL# 14.8 X10e3 (1.5-7.1); NEUTROPHIL% 92.7 % (40-75); PLATELET COUNT 221 X10e3 (140-420); RED BLOOD COUNT 4.16 X10e (3.90-5.30); RED CELL DISTRIBUTION WIDTH 13.9 % (11.0-15.5)
[2017-02-23 11:28] LABS: DIFF IND NO
[2017-02-23 11:33] LABS: INR 1.1; PARTIAL THROMBOPLASTIN TIME 25.9 SECONDS (23.5-31.3); PROTHROMBIN TIME (PATIENT) 11.4 SECONDS (10.0-11.7)
[2017-02-23 11:50] LABS: ALBUMIN SERUM 2.4 g/dL (3.5-5.0); BILIRUBIN,TOTAL 0.5 mg/dL (0.2-2.0); BUN/CREATININE RATIO 24.54; CALCIUM SERUM 8.9 mg/dL (8.4-10.2); CREATININE SERUM 1.1 mg/dL (0.6-1.4); GLOM FILT RATE Estimated 57.7 mL/min (>60); MAGNESIUM 2.1 mg/dL (1.6-3.0); PHOSPHOROUS 3.1 mg/dL (2.5-4.6); POTASSIUM 4.2 mmol/L (3.5-5.1); PROTEIN TOTAL SERUM 5.3 g/dL (6.0-8.3)
[2017-02-23 12:06] LABS: BILIRUBIN, DIRECT 0.1 mg/dL (0.0-0.2)
[2017-02-23 12:50] LABS: ARTERIAL BLD GAS O2 SATURATION 96.8 % (90.0-100.0); ARTERIAL BLOOD GAS CARBOXY HB 0.9 %sat (0.0-9.0); ARTERIAL BLOOD GAS HCO3 22.3 mmol/L; ARTERIAL BLOOD GAS MET HB 0.9 %sat (0.0-2.0); ARTERIAL BLOOD GAS PCO2 32.9 mmHg (35.0-45.0); ARTERIAL BLOOD GAS PO2 99.4 mmHg (80.0-100)
[2017-02-23 12:52] LABS: ARTERIAL BLOOD GAS ART SITE ARTERIAL LINE; ARTERIAL BLOOD GAS DELIVERY VENT; ARTERIAL BLOOD GAS VENT MODE A/C; ARTERIAL DRAW? YES
== END 2017-02-23 14:00 | DRG 208 ==
LOC: CED 05:06 → CICCU3 07:40 → CEDOF 07:40 → CED 07:53 → CICCU3 10:00 → CEDOF 10:00 → CICCU3 02-23 14:00
PROVIDERS: Emergency Medicine; Internal Medicine
PROC: 0BH17EZ Insertion of Endotracheal Airway into Trachea, Via Natural or Artificial Opening (ICD-10-PCS; principal; 2017-02-20)
PROC: 5A1945Z Respiratory Ventilation, 24-96 Consecutive Hours (ICD-10-PCS; 2017-02-20)
PROC: B24BYZZ Ultrasonography of Heart with Aorta using Other Contrast (ICD-10-PCS; 2017-02-20)
DX: J96.01 Acute respiratory failure with hypoxia (principal); G93.6 Cerebral edema; I60.9 Nontraumatic subarachnoid hemorrhage, unspecified; R57.0 Cardiogenic shock; G93.1 Anoxic brain damage, not elsewhere classified; J45.901 Unspecified asthma with (acute) exacerbation; I48.92 Unspecified atrial flutter; E87.4 Mixed disorder of acid-base balance; G62.9 Polyneuropathy, unspecified; E11.9 Type 2 diabetes mellitus without complications; Z79.4 Long term (current) use of insulin; I10 Essential (primary) hypertension; K21.9 Gastro-esophageal reflux disease without esophagitis; I25.10 Atherosclerotic heart disease of native coronary artery without angina pectoris; Z95.5 Presence of coronary angioplasty implant and graft; M54.9 Dorsalgia, unspecified; K22.70 Barrett's esophagus without dysplasia; M79.7 Fibromyalgia; Z89.512 Acquired absence of left leg below knee; Z87.442 Personal history of urinary calculi; F17.210 Nicotine dependence, cigarettes, uncomplicated; Z98.49 Cataract extraction status, unspecified eye; Z90.710 Acquired absence of both cervix and uterus; Z88.1 Allergy status to other antibiotic agents; Z88.0 Allergy status to penicillin; Z66 Do not resuscitate; Z79.82 Long term (current) use of aspirin; G89.4 Chronic pain syndrome; Z87.11 Personal history of peptic ulcer disease; E87.5 Hyperkalemia
CPT/HCPCS: 36556; 36600; 51702; 70450; 71010; 71250; 74176; 78606; 80048; 80053; 80061; 80076; 80202; 80307; 81003; 82010; 82150; 82248; 82330; 82550; 82553; 82803; 82947; 82977; 83036; 83690; 83735; 84100; 84484; 84703; 85025; 85610; 85730; 86850; 86900; 86901; 86923; 87040; 87086; 88108; 88305; 88307; 88313; 88331; 92950; 93005; 93306; 94002; 94003; 94640; 94760; 96365; 96366; 96375; 96376; 99291; A9539; C9113; J0171; J0610; J0692; J1644; J1815; J2020; J2310; J2370; J2543; J2930; J3370; J3475; P9045